=== PATIENT | female | born 1955 | race Caucasian/White ===

== ENCOUNTER 2018-11-29 23:14 | Emergency (ER) | payer OTHER ==
[~2018-11-29] VITALS: Ht 162.5 cm; Wt 77.1 kg
[~2018-11-29 23:14] MED LIST: CIPRO500 MG PO; EFFEXOR75 MG PO; NAPROSYN500 MG PO; VICO75300 PO; VICODIN 500 MG-1 TAB PO; ZANTAC OTC
[2018-11-29 23:17] VITALS: BP 179/106
[2018-11-30] MEDS ORDERED: VICODIN 5-3001 EACH PO (01:15)
== END 2018-11-30 01:17 | disposition home or self-care (01) ==
LOC: ED 23:14
DX: S42.202A Unspecified fracture of upper end of left humerus, initial encounter for closed fracture (principal); M25.522 Pain in left elbow; M25.561 Pain in right knee; Z79.899 Other long term (current) drug therapy; Z91.040 Latex allergy status; W01.190A Fall on same level from slipping, tripping and stumbling with subsequent striking against furniture, initial encounter; Y93.01 Activity, walking, marching and hiking; Y92.89 Other specified places as the place of occurrence of the external cause; Y99.8 Other external cause status

== ENCOUNTER 2025-07-24 09:42 | Emergency (ER) | payer MEDICARE ==
[~2025-07-24] VITALS: Wt 68.0 kg
[~2025-07-24 09:42] MED LIST changes: +VICODIN 5-3001 EACH PO
[2025-07-24] MEDS ORDERED: ESCITALOPRAM OX20 MG PO (09:55)
[2025-07-24] MEDS ORDERED: CENTRUM ADULT120 MCG PO (09:56)
[2025-07-24 10:05] LABS: BILIRUBIN Negative (Negative); BLOOD 1+ (Negative); CLARITY Cloudy (Clear); COLOR Yellow (Yellow); KETONE 2+ (Negative); LEUKO ESTERASE 2+ (Negative); NITRITE Negative (Negative); PH 7.0 (4.5-8.0); SPECIFIC GRAVITY 1.010 (1.001-1.030); UROBILINOGEN 1.0 E.U./dl (0.0-1.0)
[2025-07-24 10:28] VITALS: BP 146/55
[2025-07-24 10:42] LABS: BACTERIA 4+; WBC 21-30 wbc/hpf (0-5)
[2025-07-24 10:50] LABS: BASO # 0.0 10*3/uL (0.0-0.1); BASO % 0.3 % (0.0-1.0); EOS # 0.0 10*3/uL (0.0-0.4); EOS % 0.2 % (1.0-4.0); MEAN CELL VOLUME 88.3 fl (81.0-99.0); MEAN CORPUSCULAR HGB 30.1 pg (27.0-31.0); MEAN PLATELET VOLUME 10.5 fl (9.6-12.3); MONO # 0.3 10*3/uL (0.1-1.0); MONO % 4.3 % (3.0-9.0); NEUT # 5.6 10*3/uL (2.3-7.9); NEUT % 85.1 % (47.0-73.0); NUCLEATED RED BLOOD CELL 0.0 % (0.0-0.0); NUCLEATED RED BLOOD CELL 0.0 10*3/uL (0.0-0.0); PLATELET COUNT AUTOMATED 114 10*3/uL (130-400); RED CELL DISTRI WIDTH 14.0 % (0-14.5)
[2025-07-24 11:08] LABS: BUN 8 mg/dl (9-23)
[2025-07-24 11:53] LABS: SGPT/ALT 16.0 U/L (5-49)
[2025-07-24] MEDS ORDERED: SEPTDS PO (13:16)
[2025-07-24] MEDS ORDERED: METHOCARBAMOL500 M1 PO (13:16)
[2025-07-24] MEDS ORDERED: PREDNISONE20 M1 PO (13:16)
== END 2025-07-24 13:21 | disposition home or self-care (01) ==
LOC: ED 09:42
PROVIDERS: Emergency Medicine
DX: N39.0 Urinary tract infection, site not specified (principal); R10.9 Unspecified abdominal pain; M54.10 Radiculopathy, site unspecified; M10.9 Gout, unspecified; M19.90 Unspecified osteoarthritis, unspecified site; Z90.710 Acquired absence of both cervix and uterus; Z88.5 Allergy status to narcotic agent; Z88.8 Allergy status to other drugs, medicaments and biological substances